=== PATIENT | male | born 1965 | race Caucasian/White ===

== ENCOUNTER 2018-12-23 20:48 | Inpatient (IN) | payer OTHER ==
[~2018-12-23] VITALS: Ht 177.8 cm; Wt 94.3 kg
--- NOTE | 2018-12-23 21:20 | NUR ---
PT BIBSELF COMPLAINING OF 10/10 ABDOMINAL PAIN. PT AXO4. RESPIRATIONS EVEN AND UNLABORED. 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
[2018-12-23] MEDS ORDERED: IV NS 0.9% 1,000 ML BAG IV ONE ×2 (21:30→23:30)
[2018-12-23] MEDS ORDERED: ONDANSETRON HCL/PF 4 MG/2 ML VIAL IVP ONE (21:30)
[2018-12-23 21:31] LABS: APPEARANCE,URINE Slightly Cloudy (CLEAR); BILIRUBIN,URINE MODERATE (NEGATIVE); BLOOD, URINE Negative Ery/uL (NEGATIVE); COLOR,URINE Amber (YELLOW); KETONES,URINE 40 (NEGATIVE); LEUKOCYTE ESTERASE ,URINE Negative (NEGATIVE); NITRITE, URINE Negative (NEGATIVE); PROTEIN,URINE 100 mg/dl (NEGATIVE); UGLUCOSE Negative (NEGATIVE)
[2018-12-23 21:33] LABS: BASOPHILS # (AUTO) 0.1 /CMM (0.0-0.2); BASOPHILS % (AUTO) 0.4 % (0.0-2.0); EOSINOPHILS % (AUTO) 0.2 % (0.0-6.0); HEMATOCRIT 44 % (39-51); HEMOGLOBIN 15.3 g/dL (13.5-17.5); LYMPHOCYTES # (AUTO) 1.4 /CMM (0.8-4.8); LYMPHOCYTES % (AUTO) 9.7 % (20.0-44.0); MEAN CORPUSCULAR HGB CONC 35 g/dl (31.0-36.0); MEAN CORPUSCULAR VOLUME 94 fL (80-96); MONOCYTES # (AUTO) 0.7 /CMM (0.1-1.30); NEUTROPHILS # (AUTO) 12.3 /CMM (1.8-8.9); NEUTROPHILS % (AUTO) 84.7 % (43.0-81.0); PLATELET COUNT (AUTO) 300 /CMM (150-450); RED BLOOD CELL COUNT(AUTO) 4.64 MIL/uL (4.5-6.0); WHITE BLOOD COUNT (AUTO) 14.5 K/uL (4.3-11.0)
[2018-12-23] MEDS ORDERED: ONDANSETRON HCL/PF 4 MG/2 ML VIAL ONE (21:36)
[2018-12-23 21:40] LABS: CALCIUM, SERUM 8.7 mg/dL (8.5-10.1); CREATININE 0.9 mg/dL (0.6-1.3); POTASSIUM 3.6 mmol/L (3.5-5.1)
[2018-12-23 21:46] LABS: ALBUMIN 4.3 g/dL (3.4-5.0); BILIRUBIN,DIRECT 0.2 mg/dL (0.0-0.2); BILIRUBIN,TOTAL 1.3 mg/dL (0.2-1.0); TOTAL PROTEIN, SERUM 7.9 g/dL (6.4-8.2)
[2018-12-23 22:00] LABS: BACTERIA,URINE Few /HPF (None Seen); MUCUS,URINE Few /LPF (None Seen); RBC,URINE 0-2 /HPF (0-2); SQUAMOUS EPITHELIAL CELL,UR Few /HPF (None Seen); URINE AMORPHOUS URATE Few /HPF (None Seen); WBC,URINE 0-2 /HPF (0-3)
[2018-12-23] MEDS ORDERED: MORPHINE SULFATE INJ 2 MG/ML DISP.SYRIN IV ONE (23:00)
[2018-12-23] MEDS ORDERED: AZITHROMYCIN 500 MG in IV D5W 250 ML IV ONE (23:30)
[2018-12-23] MEDS ORDERED: MAGNESIUM CITRATE 296 ML BOTTLE PO ONE (23:30)
[2018-12-23] MEDS ORDERED: CEFTRIAXONE 2 G in IV D5W 50 ML IV ONE (23:30)
--- NOTE | 2018-12-23 23:37 | NUR ---
CALLED [employer]. SIGNAL MAINTENANCE TECHNICIAN DR MEJIA.
[2018-12-23] MEDS ORDERED: CEFTRIAXONE 1GM BAG (ER ONLY) 100 ML IV ONE (23:39)
--- NOTE | 2018-12-23 23:46 | NUR ---
CALLED [facility] FOR MS BED
[2018-12-23] MEDS ORDERED: HYDROMORPHONE 1 MG/1 ML DISP.SYRIN ONE (23:48)
--- NOTE | 2018-12-23 23:54 | NUR ---
PT GIVEN ROCEPHIN 2GM IV, AZITHROMAX 500 MG IV, PT STILL COMPLAINING OF 10/10 ABD PAIN 1 MG DILAUDID GIVEN, VSS WILL CONTIUE TO MONITOR
[2018-12-24] MEDS ORDERED: HYDROMORPHONE INJ 0.5 MG/0.5 ML SYRINGE IV ONE
[2018-12-24] MEDS ORDERED: HYDROCODONE/APAP 5/325MG 1 EACH TABLET PO PRN
[2018-12-24] MEDS ORDERED: ACETAMINOPHEN 325 MG TABLET PO PRN
[2018-12-24] MEDS ORDERED: MAGNESIUM HYDROXIDE 30 ML UDC PO PRN
[2018-12-24] MEDS ORDERED: ONDANSETRON HCL/PF 4 MG/2 ML VIAL IVP PRN
[2018-12-24] MEDS ORDERED: ZOLPIDEM TARTRATE 5 MG TABLET PO PRN
[2018-12-24] MEDS ORDERED: AZITHROMYCIN 500 MG VIAL ONE (00:18)
--- NOTE | 2018-12-24 01:11 | NUR ---
CALLING REPORT TO MS NURSE. MANUEL WAKEFIELD
[2018-12-24 01:40] VITALS: BP 152/86
--- NOTE | 2018-12-24 01:45 | NUR ---
NEW ADMISSION PATIENT ADMITTED FROM ER FOR PANCREATITIS. PATIENT ORIENTED TO ROOM AND SITUATED IN BED WHICH IS DOWN LOCKDED SRX2. GIVEN ACCESS TO CALL LIGHT AND INSTRUCTED ON ITS USE. VERBALIZES UNDERSTANDING. REVIEWED PAIN MANANETMENT PLAN WITH PATIENT CURRENTLY PATIENT HAS MILD PAIN IN ABD 4/10. AZITHROMYCIN FINISHING UP TO IV LINE PATIENT HAS 20 GAUGE L FA 20 WITH NO S/S OF COMPLICATIONS/INFECTION/INFILTRATION. ADMISSION ASSESSMENT TO BE PERFORMED.
[2018-12-24] MEDS: IV NS 0.9% 1,000 ML IV PRN ×2 (02:46→17:35)
[2018-12-24] MEDS: MORPHINE SULFATE INJ 2 MG/ML DISP.SYRIN IV PRN ×2 (05:46→11:04)
--- NOTE | 2018-12-24 06:00 | NUR ---
CLOSING NOTE PATIENT SEEN, RESTING IN BED RECENTLY MEDICATED FOR PAIN. DENIES COMPLAINTS. IVF INFUSING BED DOWN LOCKED, INFORMED THAT FRIEND AURELIANO CALLED FROM PHONE AT 430 THIS AM. RESPONDS HE WOULD RATHER TALK TO HER LATER, HE JUST WANTS TO REST AT THIS TIME. REVIEWED PAIN MANAGEMENT PLAN. STATES HIS PAIN IS FEELING BETTER AT 3/10 PER SCALE. BED DOWN LOCKED ENCOURAGED TO CALL FOR ASSISTANCE IF NEEDED, CALL LIGHT IN REACH.
[2018-12-24 06:53] LABS: BASOPHILS % (AUTO) 0.1 % (0.0-2.0); HEMATOCRIT 42 % (39-51); HEMOGLOBIN 14.6 g/dL (13.5-17.5); LYMPHOCYTES # (AUTO) 1.2 /CMM (0.8-4.8); LYMPHOCYTES % (AUTO) 10.6 % (20.0-44.0); MEAN CORPUSCULAR HGB CONC 35 g/dl (31.0-36.0); MEAN CORPUSCULAR VOLUME 95 fL (80-96); MONOCYTES % (AUTO) 8.8 % (2.0-12.0); NEUTROPHILS # (AUTO) 9.4 /CMM (1.8-8.9); NEUTROPHILS % (AUTO) 80.5 % (43.0-81.0); PLATELET COUNT (AUTO) 255 /CMM (150-450); RED BLOOD CELL COUNT(AUTO) 4.42 MIL/uL (4.5-6.0); WHITE BLOOD COUNT (AUTO) 11.7 K/uL (4.3-11.0)
[2018-12-24 07:02] LABS: CALCIUM, SERUM 8.2 mg/dL (8.5-10.1); CREATININE 0.7 mg/dL (0.6-1.3); MAGNESIUM 3.1 mg/dL (1.8-2.4); PHOSPHORUS 3.7 mg/dL (2.5-4.9); POTASSIUM 3.4 mmol/L (3.5-5.1)
[2018-12-24 08:00] VITALS: BP 149/79
--- NOTE | 2018-12-24 08:00 | NUR ---
MS RN NOTES PATIENT IN BED RESTING NO SOB OR ACUTE DISTRESS NOTED. PATIENT ALERT, ORIENTED X3. REPORTS PAIN IN THE ABDOMEN 4/10. ON CLEAR LIQUIDS. PERIPHERAL IV INTACT PATENT. BED IN LOW LOCKED POSITION. PATIENT AMBULATOR. WILL CONTINUE TO MONITOR.
--- NOTE | 2018-12-24 11:02 | NUR ---
MS RN NOTES REPORT GIVEN TO KAYLENE JACKSON FOR ARAM. PATIENT STABLE IN BED.
[2018-12-24] MEDS ORDERED: POTASSIUM CHLORIDE 20 MEQ TAB.PRT.SR PO SCH (11:30)
[2018-12-24] MEDS ORDERED: HYDROCODONE/APAP 10/325MG 1 EA TABLET PO PRN (12:00)
[2018-12-24 16:00] VITALS: BP 142/84
--- NOTE | 2018-12-24 18:44 | NUR ---
RN CLOSING NOTES PT AWAKE AND RESTING IN BED. FAMILY AT BEDSIDE. PT CURRENTLY NPO EXCEPT MEDS. PT HAS RIGHT AC #20 INTACT AND PATENT. SAFETY PRECAUTIONS IN PLACE, BED IN LOWEST LOCKED POSITION, X2 SIDE RAILS UP AND CALL LIGHT WITHIN REACH. WILL CONTINUE TO MONITOR.
--- NOTE | 2018-12-24 19:05 | NUR ---
RN MS OPENING NOTES RECEIVED PATIENT IN BED AWAKE ALERT AND ORIENTED X3, RESPIRATIONS EVEN AND UNLABORED WITH EQUAL RISE AND FALL OF CHEST, DENIES ANY PAIN OR DISCOMFORT AT THIS TIME, PATIENT IS NPO EXCEPT FOR MEDS, RIGHT AC #20G INTACT AND PATENT, NO REDNESS, NO INFILTRATION PRESENT IVF RUNNING ORDERED, ORIENTED TO STAFF AND CALL LIGHT AND KEPT WITHIN REACH, SAFETY PRECAUTIONS IN PLACE, LOW BED AND LOCKED, ALL NEEDS ATTENDED AT THIS TIME, WILL CONTINUE TO MONITOR AND ADDRESS NEEDS.
[2018-12-24 20:00] VITALS: BP 150/83
[2018-12-24] MEDS: KETOROLAC TROMETHAMINE INJ 30 MG/ML VIAL IM PRN (20:02)
--- NOTE | 2018-12-24 20:02 | NUR ---
RN MS NOTES PATIENT COMPLAINT OF PAIN TO ABDOMEN AREA, STATES "06/19" REQUESTING FOR PAIN MEDICATION TORADOL OFFERED EXPLAINED PURPOSE OF MEDICATION , AGREED TO HAVE. VS WNL 150/83,79,20,92%RA. NO SOB OR DISTRESS PRESENT TORADOL PRN GIVEN ORDERED, WILL CONTINUE TO MONITOR FOR EFFECTIVENESS.
--- NOTE | 2018-12-24 21:12 | NUR ---
RN MS NOTES TORADOL EFFECTIVE , PATIENT IS CURRENTLY SLEEPING. NO FACIAL GRIMACING PRESENT, NO MOANS PRESENT AT THIS TIME.
[2018-12-24] MEDS ORDERED: AZITHROMYCIN 250 MG TABLET PO ONE (23:00)
[2018-12-24] MEDS: CEFTRIAXONE 1 G in IV D5W 50 ML IV SCH (23:08)
[2018-12-24] MEDS: AZITHROMYCIN 250 MG TABLET PO SCH (23:08)
[2018-12-25] MEDS: KETOROLAC TROMETHAMINE INJ 30 MG/ML VIAL IM PRN (02:04)
--- NOTE | 2018-12-25 02:04 | NUR ---
RN MS NOTES PATIENT COMPLAINT OF PAIN TO ABDOMEN 03/19 . REQUESTING FOR PAIN MEDICATION TORADOL OFFERED PER PATIENT IT WAS HELPFUL , AGREED TO TAKE AGAIN. TORADOL PRN GIVEN ORDERED, WILL CONTINUE TO MONITOR FOR EFFECTIVENESS. VS WNL. WILL CONTINUE TO MONITOR FOR EFFECTIVENESS.
[2018-12-25] MEDS: IV NS 0.9% 1,000 ML IV PRN (04:00)
[2018-12-25 06:49] LABS: BASOPHILS % (AUTO) 0.1 % (0.0-2.0); HEMATOCRIT 41 % (39-51); LYMPHOCYTES # (AUTO) 1.4 /CMM (0.8-4.8); LYMPHOCYTES % (AUTO) 16.5 % (20.0-44.0); MEAN CORPUSCULAR HGB CONC 34 g/dl (31.0-36.0); MEAN CORPUSCULAR VOLUME 96 fL (80-96); MONOCYTES # (AUTO) 1.2 /CMM (0.1-1.30); MONOCYTES % (AUTO) 13.9 % (2.0-12.0); NEUTROPHILS % (AUTO) 69.5 % (43.0-81.0); PLATELET COUNT (AUTO) 237 /CMM (150-450); RED BLOOD CELL COUNT(AUTO) 4.28 MIL/uL (4.5-6.0); WHITE BLOOD COUNT (AUTO) 8.6 K/uL (4.3-11.0)
[2018-12-25 06:51] LABS: ALBUMIN 3.2 g/dL (3.4-5.0); BILIRUBIN,TOTAL 0.8 mg/dL (0.2-1.0); CREATININE 0.9 mg/dL (0.6-1.3); MAGNESIUM 3.6 mg/dL (1.8-2.4); PHOSPHORUS 3.3 mg/dL (2.5-4.9); POTASSIUM 3.9 mmol/L (3.5-5.1); TOTAL PROTEIN, SERUM 6.5 g/dL (6.4-8.2)
--- NOTE | 2018-12-25 07:04 | NUR ---
RN MS CLOSING NOTES PATIENT IN BED SLEEPING BUT EASILY AROSUABLE AWAKE ALERT AND ORIENTED X3, RESPIRATIONS EVEN AND UNLABORED WITH EQUAL RISE AND FALL OF CHEST, DENIES ANY PAIN OR DISCOMFORT AT THIS TIME, PATIENT IS NPO EXCEPT FOR MEDS, RIGHT AC #20G INTACT AND PATENT, NO REDNESS, NO INFILTRATION PRESENT IVF RUNNING ORDERED, CALL LIGHT KEPT WITHIN REACH, SAFETY PRECAUTIONS IN PLACE, LOW BED AND LOCKED, ALL NEEDS ATTENDED AT THIS TIME, WILL CONTINUE TO MONITOR AND ENDORSE TO NEXT SHIFT, TORADOL WAS EFFECTIVE, PATIENT SLEPT AFTER ADMINISTRATION.
--- NOTE | 2018-12-25 07:43 | NUR ---
MS RN OPENING NOTE RECIEVED PT IN BED, ALERT AND ORIENTED X4. DENIES CHEST PAIN, SOB, N/V. STATES THAT PAIN IN THE ABD "COMES AND GOES" AND IS 5/10 AT WORST AND TOLERABLE AT THIS TIME. BREATHING IS EVEN AND UNLABORED ON ROOM AIR, NO ACUTE DISTRESS NOTED AT THIS TIME. RIGHT AC #20G IV IS INFUSING NS @ 100ML/HR WITHOUT REDNESS OR SWELLING. ALL NEEDS ATTENDED TO. REVIEWED USE OF CALL SYSTEM INCLUDING TO NOT EXIT THE BED WITHOUT STAFF ASSISTANCE. PT VERBALIZED AGREEMENT AND UNDERSTANDING. BED IS LOCKED AND IN LOWEST POSITION, SIDE RAILS UP X2, CALL LIGHT AND POSSESSIONS WITHIN REACH.
[2018-12-25 08:00] VITALS: BP 149/77
[2018-12-25] MEDS: MORPHINE SULFATE INJ 2 MG/ML DISP.SYRIN IV PRN (08:03)
[2018-12-25] MEDS ORDERED: SIMETHICONE 80 MG TAB.CHEW PO PRN (08:30)
[2018-12-25] MEDS: IV NS 0.9% 1,000 ML IV SCH ×3 (08:43→21:58)
[2018-12-25 16:00] VITALS: BP 158/80
--- NOTE | 2018-12-25 18:15 | NUR ---
MS RN CLOSING NOTE PT IN BED, ALERT AND ORIENTED X4. DENIES CHEST PAIN, SOB, N/V. STATES THAT PAIN IN THE ABD IS 2/10 AT THIS TIME AND TOLERABLE. BREATHING IS EVEN AND UNLABORED ON ROOM AIR, NO ACUTE DISTRESS NOTED AT THIS TIME. RIGHT AC #20G IV IS INFUSING NS @ 150ML/HR WITHOUT REDNESS OR SWELLING. PT TOLERATING CLEAR LIQUID DIET DURING THE SHIFT WITHOUT ABD PAIN, N/V. ALL NEEDS ATTENDED TO. BED IS LOCKED AND IN LOWEST POSITION, SIDE RAILS UP X2, CALL LIGHT AND POSSESSIONS WITHIN REACH. WILL ENDORSE TO EMERGENCY COMMUNICATIONS DISPATCHER NURSE FOR CONTINUITY OF CARE.
--- NOTE | 2018-12-25 18:59 | NUR ---
MS RN NOTE PER PT OKAY TO SHARE MEDICAL INFORMATION WITH EDWAR YANEZ.
--- NOTE | 2018-12-25 19:00 | NUR ---
MANUEL MS OPENING NOTES RECEIVED PATIENT IN BED AWAKE ALERT AND ORIENTED X3, RESPIRATIONS EVEN AND UNLABORED WITH EQUAL RISE AND FALL OF CHEST, DENIES ANY PAIN OR DISCOMFORT AT THIS TIME, PATIENT IS NPO EXCEPT FOR MEDS, RIGHT AC #20G INTACT AND PATENT, NO REDNESS, NO INFILTRATION PRESENT IVF RUNNING ORDERED, ORIENTED TO STAFF AND CALL LIGHT AND KEPT WITHIN REACH, SAFETY PRECAUTIONS IN PLACE, LOW BED AND LOCKED, ALL NEEDS ATTENDED AT THIS TIME, WILL CONTINUE TO MONITOR AND ADDRESS NEEDS. Addendum: 12/26/18 at 0636 by MONI WILSON RN CLARIFICATION OF NOTES PATIENT IS ON CLEAR LIQUID DIET
[2018-12-25 20:00] VITALS: BP 143/81
[2018-12-25] MEDS: CEFTRIAXONE 1 G in IV D5W 50 ML IV SCH (22:00)
[2018-12-25] MEDS: AZITHROMYCIN 250 MG TABLET PO SCH (22:00)
[2018-12-26] MEDS: IV NS 0.9% 1,000 ML IV SCH (04:26)
[2018-12-26 06:31] LABS: BASOPHILS % (AUTO) 0.5 % (0.0-2.0); EOSINOPHILS % (AUTO) 1.5 % (0.0-6.0); HEMATOCRIT 36 % (39-51); HEMOGLOBIN 12.6 g/dL (13.5-17.5); LYMPHOCYTES # (AUTO) 2.2 /CMM (0.8-4.8); LYMPHOCYTES % (AUTO) 35.8 % (20.0-44.0); MEAN CORPUSCULAR HGB CONC 35 g/dl (31.0-36.0); MEAN CORPUSCULAR VOLUME 95 fL (80-96); MONOCYTES # (AUTO) 0.7 /CMM (0.1-1.30); MONOCYTES % (AUTO) 11.4 % (2.0-12.0); NEUTROPHILS # (AUTO) 3.1 /CMM (1.8-8.9); NEUTROPHILS % (AUTO) 50.8 % (43.0-81.0); PLATELET COUNT (AUTO) 199 /CMM (150-450); RED BLOOD CELL COUNT(AUTO) 3.79 MIL/uL (4.5-6.0); WHITE BLOOD COUNT (AUTO) 6.2 K/uL (4.3-11.0)
--- NOTE | 2018-12-26 06:34 | NUR ---
RN MS CLOSING NOTES PATIENT IN BED AWAKE ALERT AND ORIENTED X3, RESPIRATIONS EVEN AND UNLABORED WITH EQUAL RISE AND FALL OF CHEST, DENIES ANY PAIN OR DISCOMFORT AT THIS TIME, , RIGHT AC #20G REMOVED, LEFT WRIST #22 INTACT AND PATENT NO REDNESS, NO INFILTRATION PRESENT IVF RUNNING ORDERED, CALL LIGHT KEPT WITHIN REACH, SAFETY PRECAUTIONS IN PLACE, LOW BED AND LOCKED, ALL NEEDS ATTENDED AT THIS TIME, WILL CONTINUE TO MONITOR AND ADDRESS NEEDS AND ENDORSE TO NEXT SHIFT, NO C/O PAIN THROUGHOUT SHIFT, PATIENT HAD BM LAST NIGHT.
[2018-12-26 06:45] LABS: ALBUMIN 2.9 g/dL (3.4-5.0); BILIRUBIN,DIRECT 0.1 mg/dL (0.0-0.2); BILIRUBIN,TOTAL 0.7 mg/dL (0.2-1.0); CALCIUM, SERUM 8.2 mg/dL (8.5-10.1); CREATININE 0.6 mg/dL (0.6-1.3); MAGNESIUM 1.9 mg/dL (1.8-2.4); PHOSPHORUS 2.1 mg/dL (2.5-4.9); POTASSIUM 3.6 mmol/L (3.5-5.1); TOTAL PROTEIN, SERUM 5.9 g/dL (6.4-8.2)
[2018-12-26 08:00] VITALS: BP 143/73
--- NOTE | 2018-12-26 08:05 | NUR ---
M/S RN NOTES PATIENT AWAKE IN BED, ALERT AND ORIENTED X3, ABLE TO MAKE NEEDS KNOWN. NO ACUTE DISTRESS NOTED, NO SOB. DENIES ANY PAIN AT THIS TIME. SKIN WARM TO TOUCH. IVF OF NS INFUSING WELL AT 150ML/HR #20G ON THE LT WRIST. BED ON LOW AND LOCKED POSITION. CALL LIGHT WITHIN REACH.
--- NOTE | 2018-12-26 09:00 | NUR ---
M/S RN NOTES PATIENT ASSESSED AND EXAMINED BY DR. RANKIN. PATIENT OKAY FOR DISCHARGE PER DR. RANKIN.
[2018-12-26] MEDS ORDERED: IV NS 0.9% 1,000 ML IV PRN (09:37)
[2018-12-26] MEDS ORDERED: AZIT500T PO (10:58)
[2018-12-26] MEDS ORDERED: AMYL1CAP56 PO (10:58)
--- NOTE | 2018-12-26 11:20 | NUR ---
M/S RN NOTES PATIENT DISCHARGED TODAY. DISCHARGE INSTRUCTIONS GIVEN. PATIENT VERBALIZED UNDERSTANDING. ALL BELONGINGS ACCOUNTED FOR AND SIGNED. REMOVED IV SL AND APPLIED DRESSING. PATIENT LEFT VIA TAXI.
[2018-12-26] MEDS ORDERED: NEUTRA PHOS 1 POWD.PACKET PO ONE (11:30)
[2018-12-26] MEDS ORDERED: K PHOS NEUTRAL 250 MG TABLET PO ONE (11:30)
== END 2018-12-26 11:15 | disposition home or self-care (01) | DRG 438 ==
LOC: ER 20:53 → MED 12-24 00:30
PROVIDERS: ADMIT Nurse Practitioner Acute Care; ATTEND Student in an Organized Health Care Education/Training Program
DX: K85.90 Acute pancreatitis without necrosis or infection, unspecified (principal); J15.9 Unspecified bacterial pneumonia; E44.0 Moderate protein-calorie malnutrition; R73.9 Hyperglycemia, unspecified; K86.1 Other chronic pancreatitis; I10 Essential (primary) hypertension; J22 Unspecified acute lower respiratory infection; F17.210 Nicotine dependence, cigarettes, uncomplicated; E87.6 Hypokalemia; E83.51 Hypocalcemia; E80.6 Other disorders of bilirubin metabolism; Z68.29 Body mass index [BMI] 29.0-29.9, adult
CPT/HCPCS: 36415; 71045-TC; 80048-TC; 80053-TC; 80061-TC; 80076-TC; 81000-TC; 83605-TC; 83690-TC; 83735-TC; 84100-TC; 85025-TC; 87040-TC; 87081-TC; G0378; J0456; J0696; J1170; J1885; J2270; J2405; J7030; J7060

== ENCOUNTER 2019-02-19 12:08 | Inpatient (IN) | payer OTHER ==
[~2019-02-19] VITALS: Ht 165.1 cm; Wt 88.0 kg
[~2019-02-19 12:08] MED LIST: AMYL1CAP56 PO; AZIT500T PO
[2019-02-19] MEDS ORDERED: KETOROLAC TROMETHAMINE INJ 30 MG/ML VIAL ONE (12:45)
[2019-02-19] MEDS ORDERED: ONDANSETRON HCL/PF 4 MG/2 ML VIAL ONE (12:45)
[2019-02-19 12:49] LABS: BASOPHILS # (AUTO) 0.1 /CMM (0.0-0.2); BASOPHILS % (AUTO) 0.6 % (0.0-2.0); HEMATOCRIT 43 % (39-51); HEMOGLOBIN 14.8 g/dL (13.5-17.5); LYMPHOCYTES # (AUTO) 1.1 /CMM (0.8-4.8); LYMPHOCYTES % (AUTO) 8.5 % (20.0-44.0); MEAN CORPUSCULAR HGB CONC 34 g/dl (31.0-36.0); MEAN CORPUSCULAR VOLUME 96 fL (80-96); MONOCYTES # (AUTO) 0.7 /CMM (0.1-1.30); MONOCYTES % (AUTO) 5.7 % (2.0-12.0); NEUTROPHILS # (AUTO) 10.7 /CMM (1.8-8.9); NEUTROPHILS % (AUTO) 85.2 % (43.0-81.0); PLATELET COUNT (AUTO) 284 /CMM (150-450); RED BLOOD CELL COUNT(AUTO) 4.54 MIL/uL (4.5-6.0); WHITE BLOOD COUNT (AUTO) 12.5 K/uL (4.3-11.0)
[2019-02-19] MEDS ORDERED: KETOROLAC TROMETHAMINE INJ 30 MG/ML VIAL IV ONE (13:00)
[2019-02-19] MEDS ORDERED: IV NS 0.9% 1,000 ML BAG IV ONE (13:00)
[2019-02-19] MEDS ORDERED: ONDANSETRON HCL/PF 4 MG/2 ML VIAL IVP ONE (13:00)
[2019-02-19 13:01] LABS: CALCIUM, SERUM 8.8 mg/dL (8.5-10.1); CREATININE 0.7 mg/dL (0.6-1.3); POTASSIUM 3.5 mmol/L (3.5-5.1)
[2019-02-19 13:06] LABS: BILIRUBIN,DIRECT 0.2 mg/dL (0.0-0.2); TOTAL PROTEIN, SERUM 7.7 g/dL (6.4-8.2)
[2019-02-19 16:00] VITALS: BP 164/78
[2019-02-19] MEDS ORDERED: Z GUARD REMEDY 2 OZ OINT TP PRN (16:00)
[2019-02-19] MEDS ORDERED: ACETAMINOPHEN 325 MG TABLET PO PRN (16:00)
[2019-02-19] MEDS ORDERED: ONDANSETRON HCL/PF 4 MG/2 ML VIAL IVP PRN (16:00)
[2019-02-19] MEDS ORDERED: ZOLPIDEM TARTRATE 5 MG TABLET PO PRN (16:00)
[2019-02-19] MEDS ORDERED: PEG 3350/NA SULF,BICARB,CL/KCL 4,000 ML BOTTLE PO ONE (16:30)
[2019-02-19] MEDS ORDERED: MINERAL OIL 133 ML (PYXIS) 1 EA ENEMA RC ONE (16:30)
[2019-02-19] MEDS ORDERED: MAGNESIUM CITRATE 296 ML BOTTLE PO ONE (16:30)
[2019-02-19] MEDS: HYDROCODONE/APAP 5/325MG 1 EACH TABLET PO PRN (16:59)
[2019-02-19] MEDS: MAG HYDROX/AL HYDROX/SIMETH 30 ML UDC PO PRN (17:00)
[2019-02-19 19:54] VITALS: BP 141/88
[2019-02-19 20:00] VITALS: BP 141/88
[2019-02-19] MEDS: MAGNESIUM HYDROXIDE 30 ML UDC PO PRN (22:55)
[2019-02-20] MEDS: MAG HYDROX/AL HYDROX/SIMETH 30 ML UDC PO PRN (00:12)
[2019-02-20] MEDS: METOCLOPRAMIDE HCL 10 MG/2 ML VIAL IV PRN ×2 (00:36→04:47)
[2019-02-20] MEDS ORDERED: MORPHINE SULFATE INJ 2 MG/ML DISP.SYRIN IV ONE (06:00)
[2019-02-20 06:40] LABS: BASOPHILS % (AUTO) 0.1 % (0.0-2.0); HEMATOCRIT 45 % (39-51); HEMOGLOBIN 15.4 g/dL (13.5-17.5); LYMPHOCYTES # (AUTO) 1.3 /CMM (0.8-4.8); LYMPHOCYTES % (AUTO) 7.6 % (20.0-44.0); MEAN CORPUSCULAR HGB CONC 34 g/dl (31.0-36.0); MEAN CORPUSCULAR VOLUME 95 fL (80-96); MONOCYTES % (AUTO) 5.9 % (2.0-12.0); NEUTROPHILS # (AUTO) 14.3 /CMM (1.8-8.9); NEUTROPHILS % (AUTO) 86.4 % (43.0-81.0); PLATELET COUNT (AUTO) 306 /CMM (150-450); RED BLOOD CELL COUNT(AUTO) 4.76 MIL/uL (4.5-6.0); WHITE BLOOD COUNT (AUTO) 16.6 K/uL (4.3-11.0)
[2019-02-20 07:04] LABS: THYROID STIMULATING HORMONE 1.471 uIU/mL (0.358-3.74)
[2019-02-20 07:05] LABS: CREATININE 0.8 mg/dL (0.6-1.3); MAGNESIUM 2.8 mg/dL (1.8-2.4); PHOSPHORUS 3.2 mg/dL (2.5-4.9); POTASSIUM 3.5 mmol/L (3.5-5.1)
[2019-02-20 08:00] VITALS: BP 151/96
[2019-02-20] MEDS ORDERED: MORPHINE SULFATE INJ 2 MG/ML DISP.SYRIN IV PRN (10:30)
[2019-02-20] MEDS ORDERED: SUCCINYLCHOLINE CHLORIDE 20 MG/ML VIAL ONE (14:36)
[2019-02-20] MEDS ORDERED: ALBUTEROL FS 2.5 MG/3 ML VIAL.NEB ONE (15:27)
[2019-02-20 16:00] VITALS: BP 135/74
[2019-02-20 20:00] VITALS: BP 153/81
[2019-02-20] MEDS: MAGNESIUM HYDROXIDE 30 ML UDC PO PRN (21:43)
[2019-02-21] MEDS: HYDROCODONE/APAP 5/325MG 1 EACH TABLET PO PRN (01:26)
[2019-02-21 07:22] LABS: BASOPHILS % (AUTO) 0.3 % (0.0-2.0); EOSINOPHILS % (AUTO) 0.2 % (0.0-6.0); HEMATOCRIT 42 % (39-51); HEMOGLOBIN 14.4 g/dL (13.5-17.5); LYMPHOCYTES # (AUTO) 1.7 /CMM (0.8-4.8); LYMPHOCYTES % (AUTO) 24.4 % (20.0-44.0); MEAN CORPUSCULAR HGB CONC 34 g/dl (31.0-36.0); MEAN CORPUSCULAR VOLUME 96 fL (80-96); MONOCYTES # (AUTO) 1.2 /CMM (0.1-1.30); MONOCYTES % (AUTO) 16.6 % (2.0-12.0); NEUTROPHILS # (AUTO) 4.1 /CMM (1.8-8.9); NEUTROPHILS % (AUTO) 58.5 % (43.0-81.0); PLATELET COUNT (AUTO) 268 /CMM (150-450); WHITE BLOOD COUNT (AUTO) 7.1 K/uL (4.3-11.0)
[2019-02-21 07:46] LABS: CALCIUM, SERUM 8.6 mg/dL (8.5-10.1); CREATININE 0.8 mg/dL (0.6-1.3); MAGNESIUM 2.7 mg/dL (1.8-2.4); PHOSPHORUS 3.6 mg/dL (2.5-4.9); POTASSIUM 3.5 mmol/L (3.5-5.1)
[2019-02-21 08:00] VITALS: BP 152/88
[2019-02-21 09:13] LABS: BAND % (MANUAL) 2 % (0.0-5.0); EOSINOPHILS % (MANUAL) 1 % (0-4); LYMPHOCYTES % (MANUAL) 27 % (16-48); MONOCYTES % (MANUAL) 17 % (0-11.0); NEUTROPHILS % (MANUAL) 53 (42-76)
[2019-02-21 12:07] LABS: CANCER AG, 125 5.6 U/mL (Not Estab.)
[2019-02-21 15:52] VITALS: BP 143/80
[2019-02-21 20:00] VITALS: BP 134/76
[2019-02-22 08:00] VITALS: BP 142/88
[2019-02-22] MEDS: PANTOPRAZOLE 40 MG TABLET.DR PO SCH (14:22)
[2019-02-22 15:45] VITALS: BP 142/82
[2019-02-22] MEDS ORDERED: IOHEXOL-300 100 ML VIAL IV ONE (17:11)
[2019-02-22] MEDS ORDERED: CT SWABBABLE VALVE TRANS SET 1 EA INFUS.SET MC ONE (17:11)
[2019-02-22] MEDS ORDERED: IV NS 0.9% 250 ML IV ONE (17:11)
[2019-02-22 20:00] VITALS: BP 136/78
[2019-02-22 20:23] VITALS: BP 136/78
[2019-02-23 08:00] VITALS: BP 153/68
[2019-02-23] MEDS: PANTOPRAZOLE 40 MG TABLET.DR PO SCH (08:36)
== END 2019-02-23 15:00 | disposition home or self-care (01) | DRG 376 ==
LOC: ER 12:14 → MED 14:40
PROC: 0DB98ZX Excision of Duodenum, Via Natural or Artificial Opening Endoscopic, Diagnostic (ICD-10-PCS; principal; 2019-02-20)
PROC: 0DBN8ZX Excision of Sigmoid Colon, Via Natural or Artificial Opening Endoscopic, Diagnostic (ICD-10-PCS; principal; 2019-02-20)
PROC: 0DB78ZX Excision of Stomach, Pylorus, Via Natural or Artificial Opening Endoscopic, Diagnostic (ICD-10-PCS; principal; 2019-02-20)
DX: C19 Malignant neoplasm of rectosigmoid junction (principal); I10 Essential (primary) hypertension; D72.829 Elevated white blood cell count, unspecified; K80.20 Calculus of gallbladder without cholecystitis without obstruction; F17.210 Nicotine dependence, cigarettes, uncomplicated; K20.9 Esophagitis, unspecified; K29.70 Gastritis, unspecified, without bleeding; K29.80 Duodenitis without bleeding; K44.9 Diaphragmatic hernia without obstruction or gangrene
CPT/HCPCS: 36415; 71045-TC; 71260-TC; 74018; 80048-TC; 80061-TC; 80076-TC; 82378; 83690-TC; 83735-TC; 84100-TC; 84443-TC; 85025-TC; 85730-TC; 86301; 86304; 87081-TC; 88305-TC; 88313-TC; 88342; G0378; J0330; J1885; J2270; J2405; J2704; J2765; J3490; J7030; J7050; Q9967